=== PATIENT | female | born 1985 | race Caucasian/White ===

== ENCOUNTER 2019-07-09 14:53 | Emergency (ER) | payer SELFPAY ==
[2019-07-09 15:40] VITALS: BP 189/129; PULSE 93; RESP 18; TEMP 36.7; O2SAT 98; BMI 39.4
--- NOTE | 2019-07-09 17:18 | ED_ITS ---
HPI - Back Pain/Injury General: Chief Complaint: Back Pain/Injury Stated Complaint: back pain, abd pain Time Seen by Provider: 07/09/19 17:12 Source: patient Mode of arrival: ambulatory Limitations: no limitations History of Present Illness: HPI Narrative: Patient comes in with left mid back pain. Patient reports pain increases with movement of the back. Patient also has some left upper abdominal pain. Patient reports taking IBU 800 mg ibuprofen 3 times a day routinely for the past 5 days and has noticed more increased gastric discomfort. Patient appears well. Patient appears in mild pain. Associated symptoms: Reports nausea Review of Systems General: Reports: 10 or more systems reviewed and unremarkable except in HPI and below GI: Reports: nausea Musc: Reports: back pain PFSH ED PFSH: Social History Smoking and tobacco status: current every day smoker Female Reproductive History: Date of last menstrual period: 06/28/19 Physical Exam Const: COMMON NORMALS: no apparent distress and oriented x3 GENERAL APPEARANCE: cooperative HENMT: COMMON NORMALS: normocephalic, external ears normal, EAC's normal, TM's normal bilaterally and external nose normal HEAD & SCALP: normal to inspection and normocephalic FACE & SINUS: normal facial exam 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 GENERAL EAR: hearing not grossly impaired EXTERNAL EAR: Yes external ears normal EXTERNAL AUDITORY CANAL: EAC's normal TYMPANIC MEMBRANE: TM's normal bilaterally MOUTH: oral and palatal mucosa normal THROAT: posterior oropharynx normal Eye: COMMON NORMALS: PERRL and EOMs intact bilaterally PUPIL: Yes PERRL Neck/C-Spine: COMMON NORMALS: full ROM and no lymphadenopathy Lymph: LYMPHATIC: no lymphedema noted Chest: COMMONS NORMALS: inspection of chest normal and palpation of chest normal Resp: COMMON NORMALS: normal respiratory effort and clear to auscultation bilaterally AUSCULTATION: clear to auscultation bilaterally Cardio: COMMON NORMALS: regular rate and regular rhythm RATE: regular rate RHYTHM: regular rhythm GI: COMMON NORMALS: normal to inspection, nondistended, normoactive bowel sounds PALPATION: Yes tender (epigastrice tenderness) Details: LUQ : COMMON NORMALS: Yes no CVA tenderness BLADDER/KIDNEY EXAM: Yes no CVA tenderness Back/Pelvis: COMMON NORMALS: no CVA tenderness and thoracic and lumbar spine normal to inspection Extremity: COMMON NORMALS: normal to inspection GENERAL: No edema Neuro: COMMON NORMALS: oriented x3, moves all extremities and no focal motor deficits Psych: COMMON NORMALS: mental status grossly normal and cooperative Skin: COMMON NORMALS: no rashes or lesions noted GENERAL SKIN EXAM: no r ashes or lesions noted Course Vital Signs: Vital signs: Vital Signs Temperature 98.0 F 07/09/19 15:40 Pulse Rate 77 07/09/19 18:14 Respiratory Rate 16 07/09/19 18:14 Blood Pressure 166/114 07/09/19 18:14 Pulse Oximetry 98 07/09/19 18:14 MDM - Back Pain/Injury MDM Narrative: Medical decision making narrative: Patient comes in with a 5- day history of low back pain. Patient also of the past 2 days since starting to take her ibuprofen routinely started having some more epigastric discomfort. Patient reports that is because nausea and discomfort. Respirations are even lungs are clear to auscultation. Patient has paraspinous muscle tenderness. Patient has some epigastric tenderness with deep palpation. Differential diagnosis includes muscle strain, renal colic, intervertebral disc disease, facet arthropathy. Urinalysis was negative for blood. Patient did have some ketones and bilirubin in the urine though. Suspect mechanical back pain with some gastritis due to NSAID use. Patient restarted on medication methocarbamol for back pain and muscle spasms. Patient also given a few hydrocodone for breakthrough pain. Patient was recommended to drink plenty of water with medication and was started on famotidine routinely for the next month for her gastritis. Patient reported understanding and agreed to plan. Lab Data: Labs: Lab Results 07/09/19 Range/Units 18:11 Urine Color [place] (Yellow) Urine Appearance Cloudy (CLEAR) Urine pH 5 (5-7) Ur Specific Gravit y 1.025 (1.005-1.030) Urine Protein Neg (Negative) Urine Glucose (UA) Norm (Normal) Urine Ketones 1+ H (Negative) Urine Blood Neg (Negative) Urine Nitrate Negative (Negative) Urine Bilirubin 1+ H (NEGATIVE) Urine Urobilinogen 4 H (Negative) mg/dL Ur Leukocyte Ann ase Negative (Negative) Urine RBC None (0-2) /hpf Urine WBC None (0-5) /hpf Ur Squamous Epith Cells 0-4 H (0-5) Amorphous Sediment 2+ Urine Bacteria Trace (NONE) Discharge Plan Discharge Patient Disposition: Home, Self-Care Clinical Impression: Back pain Qualifiers: Back pain location: back pain in other location Chronicity: acute Qualified Code(s): M54.9 - Dorsalgia, unspecified Gastritis Qualifiers: Gastritis type: superficial Chronicity: acute Gastritis bleeding: without bleeding Qualified Code(s): K29.00 - Acute gastritis without bleeding Condition: Stable Prescriptions: New hydrocodone-acetaminophen 5-325 mg tablet 1 tab PO Q8H PRN (Reason: pain) Qty: 10 RF: 0 methocarbamol 750 mg tablet 750 mg PO Q6H Qty: 20 RF: 0 famotidine 20 mg tablet 20 mg PO BID Qty: 60 RF: 0 No Action lisinopril 40 mg tablet RF: 0 metoprolol tartrate 50 mg tablet RF: 0 IBU 800 mg tablet RF: 0 Discharge Orders: Discharge Order (Routine); Ordered 07/09/19 Ordered By: Dejuan Diaz Referrals: Leann Godinez, FLOOR TRADER-C [Family Provider] - Discharge Diet: Usual diet Discharge Activity: Increase activity as tolerated Patient Instructions: Gastritis (ED), Back Pain (ED) Activity Restrictions/Additional Instructions: Avoid NSAIDS for the next month, then use them sparingly Drink plenty of water with medications Activity as tolerated Gentle stretching and range of motion exercise Follow-up with primary care in one week for recheck Return toER for uncontrolled pain, or high fever Coding Level of Care Code ED D[employer]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
--- NOTE | 2019-07-09 17:25 | XR_ITS ---
WS: [id number] XR lumbar spine 2-3V* [id number] REASON FOR EXAM: pain FINDINGS: 5 functional lumbar vertebra as are noted. The disc spaces and vertebral bodies are normal. The lamina, pedicles, spinous processes, and transverse processes are normal. XR/XR lumbar spine 2-3V* [id number] IMPRESSION: Negative lumbar spine series.
[2019-07-09 18:14] VITALS: BP 166/114; PULSE 77; RESP 16; O2SAT 98
--- NOTE | 2019-07-09 18:30 | PC.NURSE ---
Patient reported to ED with complaints of back and flank pain on her left side. Patient reports this has been going on for approx 5 days, and history of kidney infections.
[2019-07-09 18:39] LABS: Bilirubin Urine 1+ (NEGATIVE); Blood Urine Neg (Negative); Glucose Urine UA Norm (Normal); Ketones Urine 1+ (Negative); Nitrate Urine Negative (Negative); Protein Urine Neg (Negative); Specific Gravity, Urine 1.025 (1.005-1.030); Urine Appearance Cloudy (CLEAR); Urine Color Orange (Yellow); pH Urine 5 (5-7)
[2019-07-09 18:40] LABS: Add Urine Microscopic? YES; Leukocyte Esterase Urine Negative (Negative); Urobilinogen Urine 4 mg/dL (Negative)
[2019-07-09 18:46] LABS: Add Urine Culture? No; Amorphous Sediment Urine 2+; Bacteria Urine TRACE; Squamous Epithelial Cell Urine 0-4 (0-5)
[2019-07-09] MEDS: HYDROcodone-acetaminophen 7.5-325 mg Tablet 1 TAB PO (18:51)
[2019-07-09 20:07] VITALS: BP 148/103; PULSE 69; RESP 16; O2SAT 97
== END 2019-07-09 19:57 | disposition home or self-care (01) ==
PROVIDERS: Emergency Provider Nurse Practitioner Family; Family Provider Nurse Practitioner Family
DX: M54.9 Dorsalgia, unspecified (principal); K29.70 Gastritis, unspecified, without bleeding; F17.200 Nicotine dependence, unspecified, uncomplicated
CPT/HCPCS: 72100; 81001; 99281; 99283

== ENCOUNTER 2020-10-21 23:17 | Emergency (ER) | payer SELFPAY ==
[2020-10-21 23:21] VITALS: PULSE 138; RESP 20; TEMP 36.7; O2SAT 99; BMI 39.8
[2020-10-21 23:27] VITALS: BP 131/84; PULSE 117; RESP 20; O2SAT 99
--- NOTE | 2020-10-21 23:27 | ECG_ITS ---
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1985 Requested By: Dejuan Saunders Order Number: [id number] Reading MD: MARCE AVELAR Measurements Intervals [place] Rate: 109 P: 85 IA: 209 QRS: -37 QRSD: 193 T: 100 QT: 452 QTc: 610 Interpretive Statements SINUS TACHYCARDIA POSSIBLE RIGHT ATRIAL ENLARGEMENT [0.25mV P WAVE] MARKED LEFT AXIS DEVIATION [QRS AXIS < -30] INTRAVENTRICULAR CONDUCTION DELAY [130+ ms QRS DURATION] SEPTAL MYOCARDIAL INFARCTION [40+ ms Q WAVE IN V1/V2], OF INDETERMINATE AGE INTERPRETATION BASED ON A DEFAULT AGE OF 40 YEARS No previous ECG available for comparison Electronically Signed On 10-22-2020 20:20:20 CDT by MARCE AVELAR [id number] f
--- NOTE | 2020-10-21 23:28 | XRR_ITS ---
PROCEDURE INFORMATION: Exam: XR Chest Exam date and time: 10/21/2020 11:33 PM Age: 35 years old Clinical indication: Chest pressure; Patient HX: Chest pain TECHNIQUE: Imaging protocol: XR of the chest. Views: 1 view. COMPARISON: No relevant prior studies available. FINDINGS: Lungs: Unremarkable. No consolidation. Pleural spaces: Unremarkable. No pleural effusion. No pneumothorax. Heart/Mediastinum: Unremarkable. No cardiomegaly. Bones/joints: Unremarkable. XR/XR chest 1V portable [id number] IMPRESSION: No acute disease.
[2020-10-21 23:30] VITALS: BP 121/89; PULSE 110; RESP 30; O2SAT 100
[2020-10-21 23:36] LABS: Basophils # 0.1 10^3/uL (0.0-0.1); Basophils % 0.7 %; Eosinophils # 0.1 10^3/uL (0.0-0.8); Eosinophils % 2.1 %; Hematocrit 41.3 % (37.0-47.0); Hemoglobin 13.7 g/dL (11.5-15.3); Lymphocytes # 1.3 10^3/uL (0.8-4.8); Lymphocytes % 18.6 %; Mean Corpuscular HGB Conc 33.2 g/dL (30.0-36.0); Mean Corpuscular Hemoglobin 26.6 pg (28.0-34.0); Mean Platelet Volume 10.7 fL (7.4-10.4); Monocytes # 0.4 10^3/uL (0.2-0.9); Monocytes % 5.7 %; Neutrophils # 4.86 10^3/uL (1.8-7.7); Neutrophils % 72.5 %; Nucleated Red Blood Cells % 0 %; Platelet Count 218 10^3/cmm (130-400); Red Blood Count 5.16 10^6/uL (4.1-5.3); Red Cell Distribution Width 13.7 % (12.1-15.1); White Blood Count 6.7 10^3/uL (4.0-10.0)
--- NOTE | 2020-10-21 23:38 | W.ED.CHESTPA ---
HPI - Chest Pain General: Chief Complaint: Chest Pain Stated Complaint: CP Time Seen by Provider: 10/21/20 23:27 History of Present Illness: HPI narrative: Patient was brought in by EMS for concerns of chest discomfort. Patient was drinking coffee and started having a bout of palpitations with chest discomfort. Arrival EMS noted a pulse rate above 200 with a noticeable SVT on the monitor. EMS had patient do vagal maneuvers and was able to get heart rate down to 130s. Patient does admitted to using methamphetamines to EMS. Patient reported no drug use in the emergency department. Patient does have a history of hypertension which he is on lisinopril and metoprolol. 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 MD complaint: chest pain Associated symptoms: Reports palpitations Review of Systems General: Reports: 10 or more systems reviewed and unremarkable except in HPI and below Card: Reports: chest pain and palpitations [facility] ED PFSH: Social History Smoking and tobacco status: current every day smoker Female Reproductive History: Date of last menstrual period: 10/06/20 Physical Exam Const: COMMON NORMALS: no acute distress and patient oriented x3 GENERAL APPEARANCE: cooperative HENMT: COMMON NORMALS: normocephalic and Normal external nose present HEAD & SCALP: normal to inspection and normocephalic NOSE: Normal external nose present Eye: GENERAL EYE: appearance normal, both eyes and all related structures Neck/C-Spine: COMMON NORMALS: full ROM Chest: COMMONS NORMALS: normal inspection of the chest Resp: COMMON NORMALS: normal respiratory effort EFFORT & INSPECTION: Yes able to speak in complete sentences Cardio: COMMON NORMALS: regular rhythm RATE: tachycardic RHYTHM: regular rhythm GI: COMMON NORMALS: non-tender Back/Pelvis: COMMON NORMALS: thoracic and lumbar spine normal to inspection Extremity: COMMON NORMALS: normal to inspection Neuro: COMMON NORMALS: patient oriented x3 and moves all extremities Psych: COMMON NORMALS: mental status grossly normal and cooperative Skin: COMMON NORMALS: no rashes or lesions noted GENERAL SKIN EXAM: no rashes or lesions noted Course Vital Signs: Vital signs: Vital Signs Temperature 98.1 F 10/21/20 23:21 Pulse Rate 110 H 10/21/20 23:30 Respiratory Rate 30 H 10/21/20 23:30 Blood Pressure 121/89 10/21/20 23:30 Pulse Oximetry 100 10/21/20 23:30 MDM - Chest Pain MDM Narrative: Medical decision making narrative: Patient comes in today for concerns of palpitations and chest discomfort. Patient had a recorded EKG showing SVT in the rate of 225. EMS did Valsalva maneuvers with resolution of SVT. Patient then was brought in for further evaluation and treatment. Patient reports no previous episodes. Patient did admit to EMS that she had used methamphetamines that morning. On exam respirations were even, heart rate was in the 130s, skin was warm and dry. Differential diagnosis includes but not limited to PSVT, WPW, substance abuse. EKG from EMS noted some abnormalities that could be questionable for WPW. Laboratory values were unremarkable. Patient was given 5 mg of metoprolol IV. After heart rate got below 100 and reassessment patient reported that her chest discomfort was resolved. Blood glucose was slightly low at 49 rechecked was much improved Lab Data: Labs: Lab Results 10/21/20 10/21/20 10/21/20 Range/Units 23:28 23:28 23:28 WBC 6.7 (4.0-10.0) 10^3/ uL RBC 5.16 (4.1-5.3) 10^6/u L Hgb 13.7 (11.5-15.3) g/dL Hct 41.3 (37.0-47.0) % MCV 80.0 L (81-99) fL MCH 26.6 L (28.0-34.0) pg MCHC 33.2 (30.0-36.0) g/dL RDW 13.7 (12.1-15.1) % Plt Count 218 (130-400) 10^3/c mm MPV 10.7 H (7.4-10.4) fL Neut % (Auto) 72.5 % Lymph % (Auto) 18.6 % [place] % (Auto) 5.7 % Eos % (Auto) 2.1 % Baso % (Auto) 0.7 % Neut # (Auto) 4.86 (1.8-7.7) 10^3/u L Lymph # (Auto) 1.3 (0.8-4.8) 10^3/u L [place] # (Auto) 0.4 (0.2-0.9) 10^3/u L Eos # (Auto) 0.1 (0.0-0.8) 10^3/u L Baso # (Auto) 0.1 (0.0-0.1) 10^3/u L Nucleated RBC % (a uto) 0 % Nucleated RBCs # 0.0 /100WBC D-Dimer (0-0.59) ug/mIFE U Sodium 137 (136-145) mmol/L Potassium 4.0 (3.5-5.1) mmol/L Chloride 103 (98-107) mmol/L Carbon Dioxide 25 (22-29) mmol/L Anion Gap 13.0 (5-19) BUN 9 (6-20) mg/dL Creatinine 0.6 (0.5-0.9) mg/dL GFR Calculation 114.4 (90-130) mL/min Glucose 49 L (65-115) mg/dL Calculated Osmolal ity 280 L (285-295) mOsm/k g Calcium 8.7 (8.5-10.5) mg/dL Total Bilirubin 0.4 (0.15-1.2) mg/dL AST 16 (0-32) U/L ALT 12 (0-33) U/L Alkaline Phosphata se 76 (35-105) IU/L Troponin T Baselin e 19 H (0-10) ng/L Total Protein 6.0 L (6.6-8.7) g/dL Albumin 4.1 (3.5-5.2) g/dL Globulin 1.9 (1.3-4.6) g/dL 10/21/20 Range/Units 23:28 WBC (4.0-10.0) 10^3/ uL RBC (4.1-5.3) 10^6/u L Hgb (11.5-15.3) g/dL Hct (37.0-47.0) % MCV (81-99) fL MCH (28.0-34.0) pg MCHC (30.0-36.0) g/dL RDW (12.1-15.1) % Plt Count (130-400) 10^3/c mm MPV (7.4-10.4) fL Neut % (Auto) % Lymph % (Auto) % [place] % (Auto) % Eos % (Auto) % Baso % (Auto) % Neut # (Auto) (1.8-7.7) 10^3/u L Lymph # (Auto) (0.8-4.8) 10^3/u L [place] # (Auto) (0.2-0.9) 10^3/u L Eos # (Auto) (0.0-0.8) 10^3/u L Baso # (Auto) (0.0-0.1) 10^3/u L Nucleated RBC % (a uto) % Nucleated RBCs # /100WBC D-Dimer 0.34 (0-0.59) ug/mIFE U Sodium (136-145) mmol/L Potassium (3.5-5.1) mmol/L Chloride (98-107) mmol/L Carbon Dioxide (22-29) mmol/L Anion Gap (5-19) BUN (6-20) mg/dL Creatinine (0.5-0.9) mg/dL GFR Calculation (90-130) mL/min Glucose (65-115) mg/dL Calculated Osmolal ity (285-295) mOsm/k g Calcium (8.5-10.5) mg/dL Total Bilirubin (0.15-1.2) mg/dL AST (0-32) U/L ALT (0-33) U/L Alkaline Phosphata se (35-105) IU/L Troponin T Baselin e (0-10) ng/L Total Protein (6.6-8.7) g/dL Albumin (3.5-5.2) g/dL Globulin (1.3-4.6) g/dL Discharge Plan Discharge Patient Disposition: Home Clinical Impression: Paroxysmal supraventricular tachycardia, WPW syndrome Condition: Stable Prescriptions: New metoprolol tartrate 50 mg tablet 50 mg PO BID Qty: 60 RF: 0 No Action lisinopril 40 mg tablet RF: 0 metoprolol tartrate 50 mg tablet RF: 0 methocarbamol 750 mg tablet 750 mg PO Q6H Qty: 20 RF: 0 Discharge Orders: Discharge ED (Routine); Ordered 10/22/20 Ordered By: Dejuan Diaz Discharge Diet: Usual diet Discharge Activity: Increase activity as tolerated Patient Instructions: Supraventricular Tachycardia (ED), Valsalva Maneuver (ED), Opioid Safety Coding Level of Care Code ED 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
[2020-10-21 23:49] LABS: D Dimer 0.34 ug/mIFEU (0-0.59)
[2020-10-21 23:53] LABS: Troponin(5th) Baseline 19 ng/L (0-10)
[2020-10-21 23:55] LABS: Alanine Aminotransferase 12 U/L (0-33); Albumin Level 4.1 g/dL (3.5-5.2); Alkaline Phosphatase 76 IU/L (35-105); Aspartate Amino Transferase 16 U/L (0-32); Blood Urea Nitrogen 9 mg/dL (6-20); Calcium 8.7 mg/dL (8.5-10.5); Carbon Dioxide 25 mmol/L (22-29); Chloride 103 mmol/L (98-107); Creatinine Clr Calc Pharmacy 150.7156; Globulin 1.9 g/dL (1.3-4.6); Glomerular Filtration Rate 114.4 mL/min (90-130); Glucose 49 mg/dL (65-115); Osmolality Calculated 280 mOsm/kg (285-295); Sodium 137 mmol/L (136-145); Total Bilirubin 0.4 mg/dL (0.15-1.2)
[2020-10-21] MEDS: metoprolol tartrate 1 mg/1 mL SDV 5 mL 5 MG IV (23:56)
[2020-10-22] VITALS: BP 110/80; PULSE 84; RESP 18; O2SAT 90
[2020-10-22 00:30] VITALS: BP 88/63; PULSE 76; RESP 26; O2SAT 100
[2020-10-22 01:05] LABS: Glucose Point of Care 92 mg/dL (70-110)
[2020-10-22 01:25] VITALS: BP 122/75; PULSE 85; RESP 15; O2SAT 98
--- NOTE | 2020-10-28 11:17 | DCPLANNER ---
closing manager had message to schedule a follow up appointment for patient with heart care. closing manager called heart care spoke with Marianela, gave clinic patients information. A followup appointment was scheduled for Saturday, November 16, 2020 at 2:[address] Black. closing manager called phone number [phone], patient unavailable, called phone [phone], number not in service, called number not in service. closing manager will patient a letter with appointment information.
--- NOTE | 2020-11-23 07:25 | DCPLANNER ---
Patient had a follow up appointment scheduled for 11.16.[address] Black at [facility] - patient did not attend appointment.
== END 2020-10-22 01:11 | disposition home or self-care (01) ==
PROVIDERS: Emergency Provider Nurse Practitioner Family
DX: I47.1 Supraventricular tachycardia (principal); I45.6 Pre-excitation syndrome; I10 Essential (primary) hypertension; F17.200 Nicotine dependence, unspecified, uncomplicated
CPT/HCPCS: 36416; 71045; 80053; 82962; 84484; 85025; 85378; 93005; 96374; 99284; J3490

== ENCOUNTER 2021-07-17 10:48 | Emergency (ER) | payer SELFPAY ==
[2021-07-17 09:41] VITALS: BP 189/113; PULSE 72; RESP 18; TEMP 36.6; O2SAT 100; BMI 42.5
[2021-07-17 09:48] VITALS: BP 173/104; PULSE 77; RESP 16; O2SAT 99
--- NOTE | 2021-07-17 09:57 | CT_ITS ---
WS: [id number] CT ABDOMEN PELVIS TECHNIQUE: Contrast-enhanced CT of the abdomen and pelvis with coronal and sagittal reformatted image s. CLINICAL INFORMATION: abd pain COMPARISON: None. DLP: [address] scans at [facility] use at least one of these dose optimization techniques: automated e xposure control; mA and/or kV adjustment per patient size (includes targeted exams where dose is matc hed to clinical indication); or iterative reconstruction. FINDINGS: Mild diffuse fatty infiltration of the liver. Normal portal vein and splenic vein. Normal spleen. Dif fuse gastric wall thickening with submucosal enhancement compatible with gastritis. This extends into the duodenum compatible with duodenitis. Lung bases are well aerated. Adrenal glands are normal. Normal renal parenchymal enhancement. No hydr onephrosis. Normal pancreatic parenchymal enhancement. Normal celiac and SMA. Normal appendix in the RIGHT lower quadrant. No evidence of acute appendicitis. RIGHT ovarian cysts measuring 1.7 x 1.3 cm and 2.4 x 1.9 cm. Sigmo id diverticulosis. No evidence of acute diverticulitis. Normal caliber abdominal aorta. CT/CT abdomen pelvis w con* [id number] IMPRESSION: 1. Mild diffuse fatty infiltration liver. 2. Evidence of gastroduodenitis described above. 3. RIGHT ovarian cysts measuring 1.7 x 1.3 cm and 2.4 x 1.9 cm 4. Sigmoid diverticulosis. No evidence of acute diverticulitis. 5. Normal appendix in the RIGHT lower quadrant. No evidence of acute appendici tis. 6. No other significant findings. Notified Christoph Nicole DO at 07/17/2021 11:32 AM.
[2021-07-17 10:05] LABS: Basophils # 0.1 10^3/uL (0.0-0.1); Basophils % 0.7 %; Eosinophils # 0.2 10^3/uL (0.0-0.8); Eosinophils % 2.8 %; Lymphocytes # 1.2 10^3/uL (0.8-4.8); Lymphocytes % 15.2 %; Mean Corpuscular HGB Conc 32.6 g/dL (30.0-36.0); Mean Corpuscular Hemoglobin 26.1 pg (28.0-34.0); Mean Platelet Volume 11.4 fL (7.4-10.4); Monocytes # 0.5 10^3/uL (0.2-0.9); Monocytes % 6.8 %; Neutrophils # 5.64 10^3/uL (1.8-7.7); Neutrophils % 74.1 %; Nucleated Red Blood Cells % 0 %; Platelet Count 267 10^3/cmm (130-400); Red Blood Count 5.75 10^6/uL (4.1-5.3); White Blood Count 7.6 10^3/uL (4.0-10.0)
[2021-07-17] MEDS: lactated ringers 1,000 ML 999 ML IV ×2 (10:07→11:55)
[2021-07-17] MEDS: ondansetron 2 mg/ML SDV 2 mL 4 MG IVP (10:08)
[2021-07-17 10:18] VITALS: BP 173/104; O2SAT 99
[2021-07-17 10:32] LABS: Alanine Aminotransferase 10 U/L (0-33); Albumin Level 4.4 g/dL (3.5-5.2); Alkaline Phosphatase 86 IU/L (35-105); Anion Gap 16.1 (5-19); Aspartate Amino Transferase 16 U/L (0-32); Blood Urea Nitrogen 8 mg/dL (6-20); Calcium 9.6 mg/dL (8.5-10.5); Carbon Dioxide 25 mmol/L (22-29); Chloride 101 mmol/L (98-107); Globulin 2.5 g/dL (1.3-4.6); Glomerular Filtration Rate 113.8 mL/min (90-130); Glucose 91 mg/dL (65-115); Osmolality Calculated 284 mOsm/kg (285-295); Potassium 4.1 mmol/L (3.5-5.1); Sodium 138 mmol/L (136-145); Total Bilirubin 0.4 mg/dL (0.15-1.2); Total Protein 6.9 g/dL (6.6-8.7)
[2021-07-17 10:40] LABS: HCG, Serum Qual Negative (Negative)
--- NOTE | 2021-07-17 10:44 | W.ED.ABDPA2 ---
HPI - Abdominal Pain General: Chief Complaint: Abdominal Pain Stated Complaint: abdominal pain Source: patient Mode of arrival: EMS Limitations: no limitations History of Present Illness: 36-year-old female presents emergency room complaining of left lower quadrant and left flank pain for last 3 days with nausea. No vomiting or diarrhea. She denies any medication on hematemesis cough conversing hematuria. She not noticed anything that relieves or exacerbates. She does admit to formally being a heavy drinker has not drank last late. She localizes the pain to the left upper quadrant during history and physical. MD elicited complaint: abdominal pain Pertinent past history: none Onset (ago): day(s) (3) Location: [facility] Severity: moderate Quality: cramping Radiation: none Migration to: no migration Exacerbating factors: nothing Relieving factors: nothing Associated Symptoms: Reports bloating, GI cramping, dyspepsia, nausea and poor appetite; Denies anorexia, belching, change in bowel habits, change in stool character, chills, coffee ground emesis, constipation, diarrhea, dysuria, excessive flatus, fever(s), heartburn, hematochezia, hematuria, hematemesis, fecal incontinence, loose stools, melena, syncope and vomiting Related Data: Date of Last Menstrual Period: 10/06/20 Review of Systems Const: Denies: fever(s) or chills ENMT: Denies: throat pain, ear or mastoid pain, nasal discharge or nasal congestion Card: Denies: syncope Resp: Denies: dyspnea, productive cough or non-productive cough GI: Reports: nausea, bloating and GI cramping; Denies: vomiting, hematemesis, coffee ground emesis, heartburn, diarrhea, constipation, belching, excessive flatus, fecal incontinence, change in bowel habits, change in stool character, hematochezia or melena : Denies: dysuria or hematuria Skin/Breast: Denies: rash or pruritus PFSH ED PFSH: Medical History (Updated 07/17/21 @ 12:49 by Christoph Nicole DO) No significant past medical history Surgical History (Updated 07/17/21 @ 12:49 by Christoph Nicole DO) No significant past surgical history Social History Smoking and tobacco status: current every day smoker Female Reproductive History: Date of last menstrual period: 10/06/20 Physical Exam Const: COMMON NORMALS: no acute distress GENERAL APPEARANCE: cooperative and comfortable ORIENTATION/CONSCIOUSNESS: Yes awake, Yes oriented to person, Yes oriented to place and Yes oriented to time HENMT: COMMON NORMALS: normocephalic, atraumatic and hearing grossly normal bilaterally HEAD & SCALP: normocephalic and atraumatic Neck/C-Spine: COMMON NORMALS: no JVD Resp: COMMON NORMALS: normal respiratory effort, No retractions, No use of accessory muscles and clear to auscultation bilaterally AUSCULTATION: clear to auscultation bilaterally Cardio: COMMON NORMALS: no JVD, regular rate, regular rhythm and No murmurs present (Cardio) RATE: regular rate RHYTHM: regular rhythm GI: COMMON NORMALS: Soft to palpation and No hepatosplenomegaly present AUSCULTATION: Yes normoactive bowel sounds PALPATION: Yes Soft to palpation, No Tenderness to palpation present (GI), No Guarding due to palpation present (GI) and Yes No hepatosplenomegaly present Extremity: COMMON NORMALS: normal to inspection, capillary refill normal, no clubbing, cyanosis or edema, no calf tenderness and no pedal edema Neuro: SENSORIUM/ORIENTATION: Yes oriented to person, Yes oriented to place and Yes oriented to time Skin: COMMON NORMALS: no rashes or lesions noted GENERAL SKIN EXAM: no rashes or lesions noted Course Vital Signs: Vital signs: Vital Signs Temperature 97.9 F 07/17/21 09:41 Pulse Rate 77 07/17/21 09:48 Respiratory Rate 16 07/17/21 09:48 Blood Pressure 173/104 07/17/21 10:18 Pulse Oximetry 99 07/17/21 10:18 MDM - Abdominal Pain Medical Decision Making CT shows duodenitis. Patient exam does not show any peritoneal signs. We will go and start unsell Carafate and a PPI. [place] diet advance as tolerated discussed dietary things to avoid return if has problems or persists follow-up with PCP for consideration of endoscopy if not improving with meds Medical Records I reviewed the patient's medical records. Lab Data I reviewed the patient's lab results. : 07/17/21 08:23 07/17/21 08:23 Labs/Radiology: Radiology Impressions Abdomen/Pelvis CT 07/17/21 09:57 IMPRESSION: 1. Mild diffuse fatty infiltration liver. 2. Evidence of gastroduodenitis described above. 3. RIGHT ovarian cysts measuring 1.7 x 1.3 cm and 2.4 x 1.9 cm 4. Sigmoid diverticulosis. No evidence of acute diverticulitis. 5. Normal appendix in the RIGHT lower quadrant. No evidence of acute appendicitis. 6. No other significant findings. Notified Christoph Nicole DO at 07/17/2021 11:32 AM. Laboratory Results WBC 7.6 10^3/uL (4.0-10.0) 07/17/21 08:23 RBC 5.75 10^6/uL (4.1-5.3) H 07/17/21 08:23 Hgb 15.0 g/dL (11.5-15.3) 07/17/21 08:23 Hct 46.0 % (37.0-47.0) 07/17/21 08:23 MCV 80.0 fl (81-99) L 07/17/21 08:23 MCH 26.1 pg (28.0-34.0) L 07/17/21 08:23 MCHC 32.6 g/dL (30.0-36.0) 07/17/21 08:23 RDW 13.0 % (12.1-15.1) 07/17/21 08:23 Plt Count 267 10^3/cmm (130-400) 07/17/21 08:23 MPV 11.4 fL (7.4-10.4) H 07/17/21 08:23 Neut % (Auto) 74.1 % 07/17/21 08:23 Lymph % (Auto) 15.2 % 07/17/21 08:23 [place] % (Auto) 6.8 % 07/17/21 08:23 Eos % (Auto) 2.8 % 07/17/21 08:23 Baso % (Auto) 0.7 % 07/17/21 08:23 Neut # (Auto) 5.64 10^3/uL (1.8-7.7) 07/17/21 08:23 Lymph # (Auto) 1.2 10^3/uL (0.8-4.8) 07/17/21 08:23 [place] # (Auto) 0.5 10^3/uL (0.2-0.9) 07/17/21 08:23 Eos # (Auto) 0.2 10^3/uL (0.0-0.8) 07/17/21 08:23 Baso # (Auto) 0.1 10^3/uL (0.0-0.1) 07/17/21 08:23 Nucleated RBC % (auto) 0 % 07/17/21 08:23 Nucleated RBCs # 0.0 /100WBC 07/17/21 08:23 Sodium 138 mmol/L (136-145) 07/17/21 08:23 Potassium 4.1 mmol/L (3.5-5.1) 07/17/21 08:23 Chloride 101 mmol/L (98-107) 07/17/21 08:23 Carbon Dioxide 25 mmol/L (22-29) 07/17/21 08:23 Anion Gap 16.1 (5-19) 07/17/21 08:23 BUN 8 mg/dL (6-20) 07/17/21 08:23 Creatinine 0.6 mg/dL (0.5-0.9) 07/17/21 08:23 GFR Calculation 113.8 mL/min (90-130) 07/17/21 08:23 Glucose 91 mg/dL (65-115) 07/17/21 08:23 Calculated Osmolality 284 mOsm/kg (285-295) L 07/17/21 08:23 Calcium 9.6 mg/dL (8.5-10.5) 07/17/21 08:23 Total Bilirubin 0.4 mg/dL (0.15-1.2) 07/17/21 08:23 AST 16 U/L (0-32) 07/17/21 08:23 ALT 10 U/L (0-33) 07/17/21 08:23 Alkaline Phosphatase 86 IU/L (35-105) 07/17/21 08:23 Total Protein 6.9 g/dL (6.6-8.7) 07/17/21 08:23 Albumin 4.4 g/dL (3.5-5.2) 07/17/21 08:23 Globulin 2.5 g/dL (1.3-4.6) 07/17/21 08:23 HCG, Qual Negative (Negative) 07/17/21 08:23 Urine Color Dark yellow (Yellow) 07/17/21 11:12 Urine Appearance Clear (CLEAR) 07/17/21 11:12 Urine pH 6.5 (5-7) 07/17/21 11:12 Ur Specific [place] 1.015 (1.005-1.030) 07/17/21 11:12 Urine Protein Neg (Negative) 07/17/21 11:12 Urine Glucose (UA) Norm (Normal) 07/17/21 11:12 Urine Ketones Negative (Negative) 07/17/21 11:12 Urine Blood Neg (Negative) 07/17/21 11:12 Urine Nitrate Negative (Negative) 07/17/21 11:12 Urine Bilirubin Neg (Negative) 07/17/21 11:12 Urine Urobilinogen 1 mg/dL (Negative) H 07/17/21 11:12 Ur Leukocyte Esterase Negative (Negative) 07/17/21 11:12 Discharge Plan Discharge Patient Disposition: Home Clinical Impression: Acute duodenitis Condition: Stable Prescriptions: New Carafate 1 gram tablet 1 g PO Q6H 28 Days Qty: 112 0RF omeprazole 20 mg capsule,delayed release(DR/EC) 20 mg PO DAILY 84 Days 0RF No Action metoprolol tartrate 50 mg tablet 50 mg PO BID Qty: 60 0RF Discharge Orders: Discharge ED (Routine); Ordered 07/17/21 Ordered By: Christoph Nicole Discharge Diet: Clear Liquid Discharge Activity: Increase activity as tolerated Patient Instructions: Opioid Safety Activity Restrictions/Additional Instructions: Clear liquid diet for 24-48 hrs. Coding Level of Care Code ED Waste Elimination for Meng Rooney
[2021-07-17] MEDS: iohexol 300 mg/mL 100 mL Btl IV (10:58)
[2021-07-17 11:32] LABS: Add Urine Microscopic? NO; Charge for UA Resulting for Rev
[2021-07-17 11:44] LABS: Bilirubin Urine Neg (Negative); Blood Urine Neg (Negative); Glucose Urine UA Norm (Normal); Ketones Urine Negative (Negative); Leukocyte Esterase Urine Negative (Negative); Nitrate Urine Negative (Negative); Protein Urine Neg (Negative); Specific Gravity, Urine 1.015 (1.005-1.030); Urine Appearance Clear (CLEAR); Urine Color Dark Yellow (Yellow); Urobilinogen Urine 1 mg/dL (Negative); pH Urine 6.5 (5-7)
== END 2021-07-17 12:10 | disposition home or self-care (01) ==
PROVIDERS: Emergency Provider Family Medicine
DX: K29.80 Duodenitis without bleeding (principal)
CPT/HCPCS: 74177; 80053; 81003; 84703; 85025; 96361; 96374; 99284; J2405; Q9967

== ENCOUNTER 2022-06-02 04:10 | Emergency (ER) | payer SELFPAY ==
[2022-06-02 04:13] VITALS: PULSE 101; RESP 18; TEMP 36.2; O2SAT 101; BMI 41.6
--- NOTE | 2022-06-02 04:14 | W.ED.ABDPA2 ---
HPI - Abdominal Pain General: Chief Complaint: Abdominal Pain Stated Complaint: ULQ pain Time Seen by Provider: 06/02/22 04:11 Source: patient and EMS Mode of arrival: EMS Limitations: no limitations History of Present Illness: 37-year-old female states been having some abdominal cramping over last 2 days states its in her epigastric region states she had a duodenitis in the past she tried taking sulcal fate at home with minimal relief she has had some nausea and vomiting as well she states her pain is currently 6 out of 10 she denies any fevers denies any diarrhea. Associated Symptoms: Reports nausea and vomiting; Denies chills, dysuria and fever(s) Related Data: Date of Last Menstrual Period: 10/06/20 Review of Systems Const: Denies: fever(s), chills, body aches or change in appetite Eyes: Denies: blurry vision or eye discomfort ENMT: Denies: throat pain or dental pain Card: Denies: chest pain Resp: Denies: dyspnea GI: Reports: abdominal pain, nausea and vomiting : Denies: dysuria Musc: Denies: neck pain or back pain Skin/Breast: Denies: rash Neuro: Denies: headache(s) Psych: Denies: depression [place]/Lymph: Denies: easy bruising All/Imm: Denies: urticaria PFSH ED PFSH: Medical History No significant past medical history Surgical History (Updated 07/17/21 @ 12:49 by Christoph Nicole DO) No significant past surgical history Social History Smoking and tobacco status: current every day smoker Female Reproductive History: Date of last menstrual period: 10/06/20 Physical Exam Const: COMMON NORMALS: no acute distress, patient oriented x3 and healthy appearing HENMT: COMMON NORMALS: normocephalic and atraumatic HEAD & SCALP: normocephalic and atraumatic Eye: COMMON NORMALS: Equal, round and reactive pupils present and EOMs intact bilaterally PUPIL: Yes Equal, round and reactive pupils present Neck/C-Spine: COMMON NORMALS: full ROM and supple Chest: COMMONS NORMALS: normal inspection of the chest and normal palpation of entire chest wall Resp: COMMON NORMALS: normal respiratory effort, No retractions, No use of accessory muscles and clear to auscultation bilaterally AUSCULTATION: clear to auscultation bilaterally Cardio: COMMON NORMALS: regular rate, regular rhythm and No murmurs present (Cardio) RATE: regular rate RHYTHM: regular rhythm GI: COMMON NORMALS: Normal to inspection, nondistended, normoactive bowel sounds present, Soft to palpation, non-tender and no masses PALPATION: Yes Soft to palpation Extremity: COMMON NORMALS: normal to inspection and full ROM Neuro: COMMON NORMALS: patient oriented x3, moves all extremities and no focal motor deficits Psych: COMMON NORMALS: mental status grossly normal, Normal thought process present and cooperative THOUGHT PROCESS: Normal thought process present Skin: COMMON NORMALS: no rashes or lesions noted and no wounds GENERAL SKIN EXAM: no rashes or lesions noted Course Vital Signs: Vital signs: Vital Signs Temperature 97.2 F L 06/02/22 04:13 Pulse Rate 87 06/02/22 04:35 Respiratory Rate 16 06/02/22 04:35 Blood Pressure 191/123 06/02/22 04:35 Pulse Oximetry 99 06/02/22 04:35 Oxygen Delivery Me thod 06/02/22 04:35 MDM - Abdominal Pain Medical Decision Making Patient presents with upper epigastric abdominal pain is likely a gastritis her pain here was completely resolved with a GI cocktail patient's blood work here is normal exam at discharge is benign no tenderness no signs of cholecystitis she stable for discharge we will place her on Protonix she is to follow-up with GI return if worsening she understands agrees to plan. Lab Data 06/02/22 04:17 06/02/22 04:17 Labs/Radiology: Laboratory Results WBC 7.4 10^3/uL (4.0-10.0) 06/02/22 04:17 RBC 5.82 10^6/uL (4.1-5.3) H 06/02/22 04:17 Hgb 12.6 g/dL (11.5-15.3) 06/02/22 04:17 Hct 41.8 % (37.0-47.0) 06/02/22 04:17 MCV 71.8 fl (81-99) L 06/02/22 04:17 MCH 21.6 pg (28.0-34.0) L 06/02/22 04:17 MCHC 30.1 g/dL (30.0-36.0) 06/02/22 04:17 RDW 14.2 % (12.1-15.1) 06/02/22 04:17 Plt Count 331 10^3/cmm (130-400) 06/02/22 04:17 MPV 11.7 fL (7.4-10.4) H 06/02/22 04:17 Neut % (Auto) 78.4 % 06/02/22 04:17 Lymph % (Auto) 13.7 % 06/02/22 04:17 [place] % (Auto) 6.4 % 06/02/22 04:17 Eos % (Auto) 0.4 % 06/02/22 04:17 Baso % (Auto) 0.7 % 06/02/22 04:17 Neut # (Auto) 5.76 10^3/uL (1.8-7.7) 06/02/22 04:17 Lymph # (Auto) 1.0 10^3/uL (0.8-4.8) 06/02/22 04:17 [place] # (Auto) 0.5 10^3/uL (0.2-0.9) 06/02/22 04:17 Eos # (Auto) 0.0 10^3/uL (0.0-0.8) 06/02/22 04:17 Baso # (Auto) 0.1 10^3/uL (0.0-0.1) 06/02/22 04:17 Nucleated RBC % (auto) 0 % 06/02/22 04:17 Nucleated RBCs # 0.0 /100WBC 06/02/22 04:17 Sodium 138 mmol/L (136-145) 06/02/22 04:17 Potassium 3.5 mmol/L (3.5-5.1) 06/02/22 04:17 Chloride 99 mmol/L (98-107) 06/02/22 04:17 Carbon Dioxide 26 mmol/L (22-29) 06/02/22 04:17 Anion Gap 16.5 (5-19) 06/02/22 04:17 BUN 6 mg/dL (6-20) 06/02/22 04:17 Creatinine 0.6 mg/dL (0.5-0.9) 06/02/22 04:17 GFR Calculation 113.1 mL/min (90-130) 06/02/22 04:17 Glucose 83 mg/dL (65-115) 06/02/22 04:17 Calculated Osmolality 283 mOsm/kg (285-295) L 06/02/22 04:17 Calcium 9.0 mg/dL (8.5-10.5) 06/02/22 04:17 Total Bilirubin 0.5 mg/dL (0.15-1.2) 06/02/22 04:17 AST 16 U/L (0-32) 06/02/22 04:17 ALT 12 U/L (0-33) 06/02/22 04:17 Alkaline Phosphatase 104 U/L (35-105) 06/02/22 04:17 Total Protein 7.8 g/dL (6.6-8.7) 06/02/22 04:17 Albumin 4.6 g/dL (3.5-5.2) 06/02/22 04:17 Globulin 3.2 g/dL (1.3-4.6) 06/02/22 04:17 Lipase 39 U/L (13-60) 06/02/22 04:17 HCG, Qual Negative (Negative) 06/02/22 04:17 Discharge Plan Discharge Patient Disposition: Home Clinical Impression: Abdominal pain Condition: Stable Prescriptions: New Protonix 40 mg tablet,delayed release (DR/EC) 40 mg PO DAILY Qty: 60 0RF No Action metoprolol tartrate 50 mg tablet 50 mg PO BID Qty: 60 0RF Discharge Orders: Discharge ED (Routine); Ordered 06/02/22 Ordered By: Laurel Hernandez Referrals: Jun Pimentel DO [Physician] - 1-3 days Discharge Diet: Advance as tolerated Discharge Activity: Resume usual activity Patient Instructions: Abdominal Pain (ED) Coding Level of Care Code ED Information Technology Director for Meng 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
[2022-06-02 04:18] VITALS: BP 183/115; PULSE 86; RESP 17; O2SAT 99
[2022-06-02] MEDS: lidocaine 2% viscous 15 ML, aluminum-mag hydrox-simethicon 30 ML, sucralfate oral liq 1 GM PO (04:22)
[2022-06-02] MEDS: ondansetron 2 mg/ML SDV 2 mL 4 MG IVP (04:23)
[2022-06-02] MEDS: sodium chloride 0.9% 1,000 ML 999 ML IV (04:23)
[2022-06-02 04:28] LABS: Basophils # 0.1 10^3/uL (0.0-0.1); Basophils % 0.7 %; Eosinophils % 0.4 %; Hematocrit 41.8 % (37.0-47.0); Hemoglobin 12.6 g/dL (11.5-15.3); Lymphocytes % 13.7 %; Mean Corpuscular HGB Conc 30.1 g/dL (30.0-36.0); Mean Corpuscular Hemoglobin 21.6 pg (28.0-34.0); Mean Corpuscular Volume 71.8 fl (81-99); Mean Platelet Volume 11.7 fL (7.4-10.4); Monocytes # 0.5 10^3/uL (0.2-0.9); Monocytes % 6.4 %; Neutrophils # 5.76 10^3/uL (1.8-7.7); Neutrophils % 78.4 %; Nucleated Red Blood Cells % 0 %; Platelet Count 331 10^3/cmm (130-400); Red Blood Count 5.82 10^6/uL (4.1-5.3); Red Cell Distribution Width 14.2 % (12.1-15.1); White Blood Count 7.4 10^3/uL (4.0-10.0)
[2022-06-02] MEDS: labetalol 5 mg/mL SDV 20mL 10 MG IVP (04:29)
[2022-06-02 04:35] VITALS: BP 191/123; PULSE 87; RESP 16; O2SAT 99
[2022-06-02 04:41] LABS: HCG, Serum Qual Negative (Negative)
[2022-06-02 04:53] LABS: Alanine Aminotransferase 12 U/L (0-33); Albumin Level 4.6 g/dL (3.5-5.2); Alkaline Phosphatase 104 U/L (35-105); Anion Gap 16.5 (5-19); Aspartate Amino Transferase 16 U/L (0-32); Blood Urea Nitrogen 6 mg/dL (6-20); Carbon Dioxide 26 mmol/L (22-29); Chloride 99 mmol/L (98-107); Creatinine Clr Calc Pharmacy 151.5847; Globulin 3.2 g/dL (1.3-4.6); Glomerular Filtration Rate 113.1 mL/min (90-130); Glucose 83 mg/dL (65-115); Lipase 39 U/L (13-60); Osmolality Calculated 283 mOsm/kg (285-295); Potassium 3.5 mmol/L (3.5-5.1); Sodium 138 mmol/L (136-145); Total Bilirubin 0.5 mg/dL (0.15-1.2); Total Protein 7.8 g/dL (6.6-8.7)
[2022-06-02] MEDS: hyDRALAzine 20 mg/mL INJ 1 mL 10 MG IVP (05:40)
[2022-06-02 07:00] VITALS: BP 166/115; PULSE 106; RESP 16; O2SAT 99
[2022-06-02 07:31] VITALS: BP 177/117; PULSE 106; O2SAT 99
--- NOTE | 2022-06-04 11:41 | DCPLANNER ---
Addendum entered by Debbie Armstrong 07/20/22 07:25: This appointment was cancelled Addendum entered by Debbie Armstrong 06/08/22 12:42: Patient has a follow up appointment scheduled for Monday, July 04, 2022 at 1:[address] Pimentel at general surgery. Clinic will call patient with appointment information. Original Note: erp manager had message to schedule a follow up appointment for patient with general surgery. erp manager sent patients information to the front office staff at general surgery. Patients information will be printed and reviewed. Clinic will call patient with appointment information.
== END 2022-06-02 07:25 | disposition home or self-care (01) ==
PROVIDERS: Emergency Provider Emergency Medicine
DX: R10.13 Epigastric pain (principal); R11.2 Nausea with vomiting, unspecified; F17.210 Nicotine dependence, cigarettes, uncomplicated
CPT/HCPCS: 80053; 83690; 84703; 85025; 96374; 96375; 99284; J0360; J2405; J3490; J7030

== ENCOUNTER 2023-06-15 16:55 | Emergency (ER) | payer MEDICAID, SELFPAY ==
[2023-06-15 16:59] VITALS: BP 156/103; PULSE 91; RESP 14; TEMP 36.7; O2SAT 100; BMI 38.9
[2023-06-15 18:10] LABS: Basophils # 0.1 10^3/uL (0.0-0.1); Basophils % 0.5 %; Eosinophils % 0.1 %; Hematocrit 35.8 % (36-47); Lymphocytes # 0.5 10^3/uL (0.8-4.8); Lymphocytes % 3.7 %; Mean Corpuscular HGB Conc 27.9 g/dL (30-55); Mean Corpuscular Hemoglobin 17.6 pg (27-33); Monocytes # 0.2 10^3/uL (0.2-0.9); Monocytes % 1.7 %; Neutrophils # 11.44 10^3/uL (1.8-7.7); Neutrophils % 93.5 %; Nucleated Red Blood Cells % 0 %; Platelet Count 279 10^3/cmm (157-399); Red Blood Count 5.68 10^6/uL (3.85-5.65); Red Cell Distribution Width 17.8 % (12.1-15.1); White Blood Count 12.23 10^3/uL (3.29-11.43)
[2023-06-15 18:27] LABS: Alanine Aminotransferase 29 U/L (0-33); Albumin Level 3.6 g/dL (3.5-5.2); Alkaline Phosphatase 91 U/L (35-105); Anion Gap 15.3 (5-19); Aspartate Amino Transferase 30 U/L (0-32); Blood Urea Nitrogen 10 mg/dL (6-20); Calcium 8.3 mg/dL (8.5-10.5); Carbon Dioxide 22 mmol/L (22-29); Chloride 104 mmol/L (98-107); Globulin 3.6 g/dL (1.3-4.6); Glomerular Filtration Rate 138.8 mL/min (90-130); Glucose 101 mg/dL (65-115); Lipase 12 U/L (13-60); Osmolality Calculated 283 mOsm/kg (285-295); Potassium 4.3 mmol/L (3.5-5.1); Sodium 137 mmol/L (136-145); Total Bilirubin 0.6 mg/dL (0.15-1.2); Total Protein 7.2 g/dL (6.6-8.7)
[2023-06-15 18:35] VITALS: BP 153/96; PULSE 92; RESP 18; O2SAT 100
--- NOTE | 2023-06-15 19:12 | CTR_ITS ---
PROCEDURE INFORMATION: Exam: CT Abdomen And Pelvis With Contrast Exam date and time: 06/15/2023 7:36 PM Age: 38 years old Clinical indication: Nausea and vomiting; Abdominal pain; Generalized; Prior surgery; Surgery date: 6+ months; Surgery type: Tubal; Patient HX: Diffuse abd pain with n/v; Additional info: Generalized pain, vomiting, abd pain with vomiting TECHNIQUE: Imaging protocol: Computed tomography of the abdomen and pelvis with contrast. Radiation optimization: All CT scans at this facility use at least one of these dose optimization techniques: automated exposure control; mA and/or kV adjustment per patient size (includes targeted exams where dose is matched to clinical indication); or iterative reconstruction. Contrast material: OMNI 350; Contrast volume: 100 ml; Contrast route: INTRAVENOUS (IV); COMPARISON: CT abdomen pelvis w con* [id number] 07/17/2021 10:57 AM RADIATION DOSE METRICS: Total DLP (mGy-cm): 1044.06 FINDINGS: Liver: Focal hypodensity adjacent to the fissure for the ligamentum teres likely represents 3rd inflow phenomenon or focal fat. Otherwise unremarkable. Gallbladder and bile ducts: Normal. No calcified stones. No ductal dilation. Pancreas: Normal without ductal dilatation. Spleen: Normal. Adrenal glands: Normal. No mass. Kidneys and ureters: Normal. No hydronephrosis. Stomach and bowel: No bowel dilatation to suggest obstruction. No evidence of mucosal thickening. Appendix: Normal. Intraperitoneal space: Minimal free pelvic fluid is likely physiologic. No free air or focal well organized fluid collection. Vasculature: Minimal systemic atherosclerosis without abdominal aortic aneurysm. Lymph nodes: Unremarkable. No enlarged lymph nodes. Urinary bladder: Urinary bladder is unremarkable. Reproductive: Unremarkable as visualized. Bones/joints: Unremarkable. No acute fracture. Soft tissues: Lower anterior abdominal wall postsurgical scarring and fat necrosis. CT/CT abdomen pelvis w con* [id number] IMPRESSION: No acute findings.
[2023-06-15] MEDS: sodium chloride 0.9% 1,000 ML 999 ML IV (19:23)
[2023-06-15] MEDS: metoclopramide 5 mg/mL SDV 2 mL 10 MG IVP (19:24)
[2023-06-15 19:39] LABS: Influenza A by IFA negative (Negative); Influenza B by IFA negative (Negative); SARS Covid-2 Antigen negative (Negative)
[2023-06-15] MEDS: iohexol 350 mg/mL 500 mL Btl (per mL) IV (19:40)
[2023-06-15 19:41] LABS: Add Urine Microscopic? YES; Bilirubin Urine 1+ (Negative); Blood Urine 2+ (Negative); Glucose Urine UA Norm (Normal); Ketones Urine 3+ (Negative); Leukocyte Esterase Urine 2+ (Negative); Nitrate Urine Negative (Negative); Protein Urine 1+ (Negative); Urine Appearance Cloudy (CLEAR); Urine Color Yellow (Yellow); Urobilinogen Urine 1 mg/dL (Negative); pH Urine 5 (5-7)
[2023-06-15 19:42] LABS: Amorphous Sediment Urine 1+ /hpf; Bacteria Urine 2+ /hpf; Hyaline Casts Urine 0-4 /lpf; Mucus Urine 1+ /hpf; RBC Urine 15-25 /hpf (0-2); Squamous Epithelial Cell Urine 25-40 /hpf (0-5); WBC Urine 25-40 /hpf (0-5)
--- NOTE | 2023-06-15 19:52 | PC.NURSE ---
pt report change in condition at approx 1850, pt now vomiting and reporting increasing nausea with pain 02/26
[2023-06-15 19:56] LABS: HCG Qualitative Urine. Negative (Negative)
--- NOTE | 2023-06-15 20:46 | W.ED.ABDPA2 ---
HPI - Abdominal Pain General: Chief Complaint: Abdominal Pain Stated Complaint: EPIG PAIN Time Seen by Provider: 06/15/23 17:17 Source: patient Mode of arrival: EMS Limitations: no limitations History of Present Illness: Patient presents emergency department today for evaluation treatment of nonspecific, generalized abdominal pains. Patient throughout the day has had allover abdominal pains and nausea. She had not vomited until she arrived here at the emergency department. Patient has not had diarrhea. She reports her last bowel movement was yesterday. She notes a decrease in urine output if she has not been able to tolerate oral intake due to her abdominal pains. She is reporting a subjective fever but has not recorded her temperature. She is denying cough or congestion. She denies any known exposures to illness and no others with similar illnesses at home. Patient still has her gallbladder. She still has her appendix. Review of Systems General: Reports: 10 or more systems reviewed and unremarkable except in HPI and below PFSH ED PFSH: Medical History No significant past medical history Surgical History No significant past surgical history Social History Smoking and tobacco/nicotine status: current every day tobacco/nicotine user Physical Exam Const: COMMON NORMALS: patient oriented x3 and alert OTHER: Patient answers her own history but immediately worsens to tears upon my arrival to the room. HENMT: COMMON NORMALS: normocephalic, atraumatic, hearing grossly normal bilaterally and moist oral mucous membranes HEAD & SCALP: normocephalic and atraumatic Eye: COMMON NORMALS: Equal, round and reactive pupils present, EOMs intact bilaterally and conjunctivae normal CONJUNCTIVA: Yes conjunctivae normal PUPIL: Yes Equal, round and reactive pupils present Neck/C-Spine: COMMON NORMALS: full ROM and no JVD Lymph: LYMPHATIC: no lymphadenopathy noted Resp: COMMON NORMALS: normal respiratory effort, No retractions, No use of accessory muscles and clear to auscultation bilaterally AUSCULTATION: clear to auscultation bilaterally Cardio: COMMON NORMALS: no JVD, regular rate and regular rhythm RATE: regular rate RHYTHM: regular rhythm GI: OTHER: Normoactive bowel sounds. Patient with nonspecific abdominal tenderness on palpation. No specific right lower quadrant or right upper quadrant tenderness. No specific epigastric tenderness. : COMMON NORMALS: Yes no CVA tenderness BLADDER/KIDNEY EXAM: Yes no CVA tenderness Back/Pelvis: COMMON NORMALS: no CVA tenderness, no thoracic nor lumbar tenderness and thoraco-lumbar ROM normal Extremity: COMMON NORMALS: normal to inspection, full ROM and capillary refill normal NARRATIVE EXTREMITY EXAM: Patient observed walking down the hallway to go to the bathroom. She is independently ambulatory and weightbearing. Neuro: COMMON NORMALS: patient oriented x3 SENSORIUM/ORIENTATION: Yes alert Psych: COMMON NORMALS: mental status grossly normal, Normal thought process present, cooperative, normal affect and activity/motor behavior normal THOUGHT PROCESS: Normal thought process present Skin: COMMON NORMALS: no rashes or lesions noted and no wounds GENERAL SKIN EXAM: no rashes or lesions noted Course Vital Signs: Vital signs: Vital Signs Temperature 98.0 F 06/15/23 16:59 Pulse Rate 82 06/15/23 22:22 Respiratory Rate 18 06/15/23 18:35 Blood Pressure 163/107 06/15/23 22:22 Pulse Oximetry 10 L 06/15/23 22:22 Oxygen Delivery Me thod Room Air 06/15/23 18:35 MDM - Abdominal Pain Medical Decision Making Patient presents to the emergency department today for evaluation and treatment of generalized abdominal discomfort, loose stools, and new onset vomiting this evening. Patient's lab work did show slightly elevated white blood cell count and stable anemia as compared to previous lab work. Given the nonspecific findings and the lab work we did proceed on with a CT examination which revealed no acute findings. I am suspicious of a stomach bug causing her symptoms today. However, her urinalysis does show findings of a mild urinary tract infection. We will culture the urine for further evaluation but, patient was started on antibiotics here in the emergency department with a prescription sent to the pharmacy to continue. Patient received fluids, antinausea medication and Bentyl for her symptoms here in the ER. On recheck, patient was found to be resting in the recliner in no signs of distress. I did discuss all findings and treatment recommendations with the patient and she verbalized understanding and agreement to treatment plan. Return precautions given. Differential Diagnosis Likely abdominal pain and gastroenteritis; Unlikely acute appendicitis, calculus of kidney, constipation, diverticulitis, endometriosis, pancreatitis or small bowel obstruction Lab Data 06/15/23 18:03 06/15/23 18:03 Labs/Radiology: Radiology Impressions Abdomen/Pelvis CT 06/15/23 19:12 IMPRESSION: No acute findings. Laboratory Results WBC 12.23 10^3/uL (3.29-11.43) H 06/15/23 18:03 RBC 5.68 10^6/uL (3.85-5.65) H 06/15/23 18:03 Hgb 10.00 g/dL (11.27-16.99) L 06/15/23 18:03 Hct 35.8 % (36-47) L 06/15/23 18:03 MCV 63.0 fl (85-98) L 06/15/23 18:03 MCH 17.6 pg (27-33) L 06/15/23 18:03 MCHC 27.9 g/dL (30-55) L 06/15/23 18:03 RDW 17.8 % (12.1-15.1) H 06/15/23 18:03 Plt Count 279 10^3/cmm (157-399) 06/15/23 18:03 MPV 10.0 fL (7.4-10.4) 06/15/23 18:03 Neut % (Auto) 93.5 % 06/15/23 18:03 Lymph % (Auto) 3.7 % 06/15/23 18:03 Winn % (Auto) 1.7 % 06/15/23 18:03 Eos % (Auto) 0.1 % 06/15/23 18:03 Baso % (Auto) 0.5 % 06/15/23 18:03 Neut # (Auto) 11.44 10^3/uL (1.8-7.7) H 06/15/23 18:03 Lymph # (Auto) 0.5 10^3/uL (0.8-4.8) L 06/15/23 18:03 Winn # (Auto) 0.2 10^3/uL (0.2-0.9) 06/15/23 18:03 Eos # (Auto) 0.0 10^3/uL (0.0-0.8) 06/15/23 18:03 Baso # (Auto) 0.1 10^3/uL (0.0-0.1) 06/15/23 18:03 Nucleated RBC % (auto) 0 % 06/15/23 18:03 Nucleated RBCs # 0.0 /100WBC 06/15/23 18:03 Sodium 137 mmol/L (136-145) 06/15/23 18:03 Potassium 4.3 mmol/L (3.5-5.1) 06/15/23 18:03 Chloride 104 mmol/L (98-107) 06/15/23 18:03 Carbon Dioxide 22 mmol/L (22-29) 06/15/23 18:03 Anion Gap 15.3 (5-19) 06/15/23 18:03 BUN 10 mg/dL (6-20) 06/15/23 18:03 Creatinine 0.5 mg/dL (0.5-0.9) 06/15/23 18:03 GFR Calculation 138.8 mL/min (90-130) H 06/15/23 18:03 Glucose 101 mg/dL (65-115) 06/15/23 18:03 Calculated Osmolality 283 mOsm/kg (285-295) L 06/15/23 18:03 Calcium 8.3 mg/dL (8.5-10.5) L 06/15/23 18:03 Total Bilirubin 0.6 mg/dL (0.15-1.2) 06/15/23 18:03 AST 30 U/L (0-32) 06/15/23 18:03 ALT 29 U/L (0-33) 06/15/23 18:03 Alkaline Phosphatase 91 U/L (35-105) 06/15/23 18:03 Total Protein 7.2 g/dL (6.6-8.7) 06/15/23 18:03 Albumin 3.6 g/dL (3.5-5.2) 06/15/23 18:03 Globulin 3.6 g/dL (1.3-4.6) 06/15/23 18:03 Lipase 12 U/L (13-60) L 06/15/23 18:03 HCG, Qual Negative (Negative) 06/15/23 19:22 Urine Color Yellow (Yellow) 06/15/23 19:22 Urine Appearance Cloudy (CLEAR) A 06/15/23 19:22 Urine pH 5 (5-7) 06/15/23 19:22 Ur Specific [place] 1.020 (1.005-1.030) 06/15/23 19:22 Urine Protein 1+ (Negative) H 06/15/23 19:22 Urine Glucose (UA) Norm (Normal) 06/15/23 19:22 Urine Ketones 3+ (Negative) H 06/15/23 19:22 Urine Blood 2+ (Negative) H 06/15/23 19:22 Urine Nitrate Negative (Negative) 06/15/23 19:22 Urine Bilirubin 1+ (Negative) H 06/15/23 19:22 Urine Urobilinogen 1 mg/dL (Negative) H 06/15/23 19:22 Ur Leukocyte Esterase 2+ (Negative) H 06/15/23 19:22 Urine RBC 15-25 /hpf (0-2) H 06/15/23 19:22 Urine WBC 25-40 /hpf (0-5) H 06/15/23 19:22 Ur Squamous Epith Cells 25-40 /hpf (0-5) H 06/15/23 19:22 Amorphous Sediment 1+ /hpf 06/15/23 19:22 Urine Bacteria 2+ /hpf (NONE) H 06/15/23 19:22 Hyaline Casts 0-4 /lpf H 06/15/23 19:22 Urine Mucus 1+ /hpf 06/15/23 19:22 Influenza Type A Ag negative (Negative) 06/15/23 19:14 Influenza Type B Ag negative (Negative) 06/15/23 19:14 SARS-CoV-2 Ag (Rapid) negative (Negative) 06/15/23 19:14 All radiology interpretation(s) finalized by discharge Discharge Plan Discharge Patient Disposition: Home Clinical Impression: Gastroenteritis, UTI (urinary tract infection) Condition: Stable Prescriptions: New dicyclomine 10 mg capsule 10 mg PO TID Qty: 14 0RF ondansetron 4 mg tablet,disintegrating 4 mg PO Q8H 5 Days Qty: 15 0RF cefdinir 300 mg capsule 300 mg PO BID 10 Days Qty: 20 0RF No Action metoprolol tartrate 50 mg tablet 50 mg PO BID Qty: 60 0RF Protonix 40 mg tablet,delayed release (DR/EC) 40 mg PO DAILY Qty: 60 0RF Discharge Orders: Discharge ED (Routine); Ordered 06/15/23 Ordered By: Danuta Brar Discharge Diet: Advance as tolerated Discharge Activity: Increase activity as tolerated Patient Instructions: Urinary Tract Infection in Women (DC), Gastroenteritis (ED) Activity Restrictions/Additional Instructions: Lab work today revealed no specific concerns for gallbladder or appendicitis. Scan today revealed no acute concerns as well. You most likely have a stomach bug which could last for couple of days including abdominal pains and cramps, nausea, vomiting, diarrhea. I provided you some medication to help with the symptoms. Your urine did show some mild findings of urinary tract infection and we did provide you some antibiotics to start treatment for this as well. I have requested a culture and sensitivity be run so we can isolate any bacterial cause for your infection. I recommend a follow-up appoint with your primary care provider at the end of the week for recheck. However, if you begin profusely vomiting, have change or worsening of abdominal pains or, or unable to tolerate fluids leading to concerns for dehydration need to be seen and reevaluated sooner. Coding Level of Care Code ED [facility] [employer] for [facility]oney
[2023-06-15] MEDS: dicyclomine 10 mg Capsule PO (21:24)
[2023-06-15] MEDS: cefTRIAXone 1,000 MG in sodium chloride 0.9% (plus) 50 ML 100 MG IV (21:25)
[2023-06-15 22:22] VITALS: BP 163/107; PULSE 82; O2SAT 10
== END 2023-06-15 22:23 | disposition home or self-care (01) ==
PROVIDERS: Emergency Provider Physician Assistant
DX: K52.9 Noninfective gastroenteritis and colitis, unspecified (principal); N39.0 Urinary tract infection, site not specified; Z11.52 Encounter for screening for COVID-19; Z72.0 Tobacco use
CPT/HCPCS: 36415; 74177; 80053; 81001; 81025; 83690; 85025; 87086; 87426; 87804; 96361; 96365; 96375; 99285; J0696; J2765; J7030; Q9967